=== PATIENT | male | born 2000 | race African-American/Black ===

== ENCOUNTER 2019-10-20 11:13 | Emergency (ER) | payer MEDICAID ==
[~2019-10-20] VITALS: Ht 175.3 cm; Wt 77.1 kg
[2019-10-20] MEDS ORDERED: IV NORMAL SALINE 1000 ML BAG IV ONE (11:45)
[2019-10-20] MEDS ORDERED: IV NORMAL SALINE 250 ML IV ONE (11:55)
[2019-10-20] MEDS ORDERED: IOHEXOL 350 100 ML INFUS..BTL ONE (11:55)
[2019-10-20] MEDS ORDERED: SWABABLE VALVE TRANSFER SET EA MC ONE (11:55)
[2019-10-20 12:04] LABS: BASOPHILS % (AUTO) 0.7 % (0.0-2.0); EOSINOPHILS % (AUTO) 0.1 % (0.0-7.0); HEMATOCRIT 46.3 % (36.7-47.1); HEMOGLOBIN 15.2 g/dL (12.5-16.3); LYMPHOCYTES # (AUTO) 1.8 K/uL (20.0-40.0); LYMPHOCYTES % (AUTO) 38.4 % (20.5-74.5); MEAN CORPUSCULAR HEMOGLOBIN 27.9 uug (23.8-33.4); MEAN CORPUSCULAR HGB CONC 33 g/dL (32.5-36.3); MEAN CORPUSCULAR VOLUME 84.8 fL (73.0-96.2); MONOCYTES # (AUTO) 0.3 K/uL (2.0-10.0); MONOCYTES % (AUTO) 5.6 % (0-11); NEUTROPHILS # (AUTO) 2.6 K/uL (1.8-8.9); NEUTROPHILS % (AUTO) 55.2 % (31.5-64.5); PLATELET COUNT (AUTO) 248 K/uL (152-348); RED BLOOD CELL COUNT(AUTO) 5.47 MIL/uL (4.06-5.63); WHITE BLOOD COUNT (AUTO) 4.8 K/uL (3.6-10.2)
[2019-10-20 12:09] LABS: CREATININE 1.2 mg/dL (0.6-1.3); POTASSIUM 4.1 mmol/L (3.5-5.1)
[2019-10-20 12:15] LABS: BILIRUBIN,TOTAL 0.7 mg/dL (0.2-1.0); TOTAL PROTEIN, SERUM 6.6 g/dL (6.4-8.2)
[2019-10-20] MEDS ORDERED: HYDROCODONE/APAP 5-325MG TABLET PO ONE (13:30)
--- NOTE | 2019-10-20 14:08 | NUR ---
Patient discharged to home in stable conditon. Written and verbal after care instructions given. Patient verbalizes understanding of instructions.PT WAS GIVEN THE COPY OF THE IMAGES TO FOLLOW UP WITH MRI. PT ACCOMPANIED BY GIRL FRIEND
[2019-10-20 14:10] VITALS: BP 145/90
== END 2019-10-20 14:12 | disposition home or self-care (01) ==
LOC: ER 11:13
DX: M54.12 Radiculopathy, cervical region (principal); M54.31 Sciatica, right side; F41.9 Anxiety disorder, unspecified
CPT/HCPCS: 36415; 70450; 70498; 73000; 80053; 85025; 99285; Q9967; A4663; J7030; J7050

== ENCOUNTER 2020-04-30 21:38 | Emergency (ER) | payer MEDICAID ==
[~2020-04-30] VITALS: Ht 177.8 cm; Wt 78.5 kg
[2020-04-30] MEDS: IBUPROFEN 600 MG TABLET PO ONE (22:10)
[2020-04-30] MEDS ORDERED: IBUPROFEN 600 MG TABLET ONE (22:12)
[2020-04-30 22:13] VITALS: BP 122/68
== END 2020-04-30 22:14 | disposition home or self-care (01) ==
LOC: ER 21:39
DX: M25.531 Pain in right wrist (principal); V19.9XXA Pedal cyclist (driver) (passenger) injured in unspecified traffic accident, initial encounter; Y93.55 Activity, bike riding; Y92.89 Other specified places as the place of occurrence of the external cause
CPT/HCPCS: 73110; A4663